=== PATIENT | male | born 1990 | race Caucasian/White ===

== ENCOUNTER 2021-01-12 12:27 | Emergency (ER) | payer BC ==
[~2021-01-12] VITALS: Ht 185.4 cm; Wt 148.0 kg
[2021-01-12] MEDS ORDERED: KETOROLAC 60MG/2ML VIAL IM STA (13:21)
[2021-01-12] MEDS ORDERED: HYDROCODONE/ACETAMINOPHEN 5/325MG TABLET PO STA (13:21)
[2021-01-12] MEDS ORDERED: BACITRACIN ZINC OINT UDPKT TOP ONE (13:30)
[2021-01-12] MEDS ORDERED: TETANUS, DIPHTHERIA, PERTUSSIS VAC/PF 0.5ML (>7YR OLD) IM ONE (13:30)
[2021-01-12] MEDS ORDERED: LIDOCAINE HCL/PF 1% 10 MG/ML 5ML VIAL IJ ONE (15:30)
[2021-01-12] MEDS ORDERED: MORPHINE SULFATE 10 MG/ML CPJ IM ONE ×2 (16:15)
[2021-01-12] MEDS ORDERED: AMOXICILLIN/POTASSIUM CLAVULANATE 875/125MG TAB PO ONE (16:45)
[2021-01-12] MEDS ORDERED: HYDR-4346 PO (17:49)
[2021-01-12] MEDS ORDERED: IBUP-2029 PO (17:49)
[2021-01-12] MEDS ORDERED: AMOX-424 PO (17:50)
[2021-01-12 18:31] VITALS: BP 154/89
== END 2021-01-12 18:32 | disposition home or self-care (01) ==
LOC: ER 13:38
DX: S62.511B Displaced fracture of proximal phalanx of right thumb, initial encounter for open fracture (principal); W22.8XXA Striking against or struck by other objects, initial encounter; Y93.89 Activity, other specified; Y92.89 Other specified places as the place of occurrence of the external cause; Y99.8 Other external cause status
CPT/HCPCS: 29125; 73130; 73140; 96372; 99284; A4217; J1885; J2270; J3490; Z7610